=== PATIENT | female | born 1995 | race Caucasian/White ===

== ENCOUNTER 2016-09-27 22:49 | Inpatient (IN) | payer OTHER ==
--- NOTE | ~2016-09-27 | DS ---
Unit #: [id number] #: [id number] Patient: KHUSHBU TEE [id number] [facility] [address] [place] [address] [id number] MR#: [id number] NAME: KHUSHBU TEE ROOM: 30 Age: 21 Sex: F Admission Date: 09/27/2016 : 1995 Discharge Date: 10/01/2016 Attending Physician: Samson Hazel M.D. Primary Care Physician: Chinmay Duarte M.D. DISCHARGE SUMMARY REASON FOR ADMISSION Suicidal ideation. DIAGNOSTIC STUDIES LABORATORY RESULTS: Urine drug screen positive for marijuana. HOSPITAL COURSE The patient was admitted to inpatient unit on 09/27/2016 and discharged on 10/01/2016. The patient was treated on the inpatient unit with group therapy, individual therapy, and medication management. The patient responded well with the above modalities of treatment and medication management. Subsequently, the patient was discharged with a plan to follow up in outpatient clinic. DISCHARGE MEDICATIONS Minipress 2 mg at bedtime for nightmare, Prozac 40 mg daily for mood symptom, Vistaril 50 mg t.i.d. for anxiety, and Geodon 40 mg b.i.d. for psychosis. The patient was advised to continue with other medications; Lipitor 10 mg daily for high cholesterol, Toprol-XL 25 mg daily for hypertension, Glucophage 1000 mg b.i.d. for diabetes, and Zestril 10 mg daily for hypertension. DISCHARGE DIAGNOSES Psychiatric: 1. Schizoaffective disorder, bipolar type. 2. Marijuana abuse, moderate. 3. Alcohol use disorder, moderate. Secondary diagnosis: Deferred. Medical diagnoses: History of hypertension, obesity, high cholesterol, type 2 diabetes, tachycardia. Stressors: Psychosocial stressors. DISCHARGE INSTRUCTIONS The patient is to follow up in outpatient clinic as per social research assistant. CONDITION ON DISCHARGE The patient was pleasant and cooperative. Denied any psychotic symptom or any suicidal ideation. PROGNOSIS Guarded. Unit #: [id number] #: [id number] Patient: KHUSHBU TEE DIET AND ACTIVITY As tolerated. Dictated by... Samson Hazel M.D. SZMarleny/antonieta TD: 10/01/2016 14:16 JOB #: [id number] DISCHARGE SUMMARY Page 1 of 1 X Samson Hazel MD DISCHARGE SUMMARY
--- NOTE | ~2016-09-27 | PN ---
Unit #: [id number] #: [id number] Patient: KHUSHBU BURRIS [id number] [facility] [address] [place] [address] [id number] I MR#: [id number] NAME: KHUSHBU BURRIS ROOM: 30 Age: 21 Sex: F Admission Date: 09/27/2016 : 1995 Attending Physician: Samson Hazel M.D. Admitting Physician: Samson Hazel M.D. Primary Care Physician: Chinmay ANAYA PROGRESS NOTES DATE 09/30/2016 DISCUSSION Khushbu Burris is a 21-year-old female seen on 09/30/2016. Patient interviewed. Chart reviewed. Obtained information from nursing staff. Patient was compliant, cooperative. Mood sad, dysphoric, flat affect, guarded. Patient was able to maintain safe behavior. Denied any thoughts of harming self or others but cooperative. Complete review of system unremarkable. MENTAL STATUS EXAMINATION General appearance, patient dressed casually. Attention span, concentration fair. Oriented in place and person. Mood and affect sad, dysphoric. Speech monotone. Thought process concrete. Patient denied any thoughts of harming self or others but guarded. Recent and remote memory poor. Insight and judgement poor. DIAGNOSIS Mood disorder NOS. ASSESSMENT/PLAN Advised to continue with current medication and therapeutic protocol. Will monitor response to medication and make further adjustment of medication. Dictated by... Rahel Morfin/gray TD: 10/01/2016 22:04 JOB #: [id number] Unit #: [id number] #: [id number] Patient: KHUSHBU BURRISXI PROGRESS NOTES Page 1 of 1 X Samson Hazel MD PROGRESS NOTE
--- NOTE | ~2016-09-27 | PN ---
Unit #: [id number] #: [id number] Patient: KHUSHBU BURRIS [id number] [facility] [address] [place] [address] [id number] I MR#: [id number] NAME: KHUSHBU BURRIS ROOM: 30 Age: 21 Sex: F Admission Date: 09/27/2016 : 1995 Attending Physician: Samson Hazel M.D. Admitting Physician: Samson Hazel M.D. Primary Care Physician: Chinmay ANAYA PROGRESS NOTES DATE OF SERVICE 09/29/2016 DISCUSSION Ms. Khushbu Burris is a 21-year-old female seen on 09/29/2016. The patient interviewed, chart reviewed. Obtained information from nursing staff. The patient reports feeling better. Compliant with medication. No side effects from medication. The patient was able to maintain safe behavior on the unit. Compliant, cooperative. Vital Signs: 98.2, 90, 16, 125/62. Complete Review of Systems: Unremarkable. MENTAL STATUS EXAMINATION General Appearance: The patient dressed casually. Attention span, concentration: Fair. Oriented in place and person. Mood and affect: Sad, dysphoric. Speech: Monotone. Thought process: [place]. The patient denied any thoughts of harming self or others but guarded. Recent and remote memory: Poor. Insight and judgment: Poor. DIAGNOSES Bipolar mood disorder not otherwise specified. ASSESSMENT/PLAN Advised to continue with current medication and behavior protocol. We will monitor response to medication and make further adjustment of medication. Dictated by... Rahel Morfin/elias TD: 09/30/2016 10:24 JOB #: [id number] Unit #: [id number] #: [id number] Patient: KHUSHBU BURRIS PROGRESS NOTES Page 1 of 1 X Samson Hazel MD PROGRESS NOTE
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
--- NOTE | ~2016-09-27 | HP ---
Unit #: [id number] #: [id number] Patient: KHUSHBU TEE [id number] [place] [address] [id number] I MR#: [id number] NAME: KHUSHBU TEE ROOM: P130 Age: 21 Sex: F Admission Date: 09/27/2016 : 1995 Attending Physician: Samson Hazel M.D. Admitting Physician: Samson Hazel M.D. Primary Care Physician: Chinmay Duarte HISTORY AND PHYSICAL HISTORY OF PRESENT ILLNESS Khushbu is a 21 year old admitted to [address] [place] [address] because of her abuse of alcohol. She also reports wanting to hurt herself. PAST MEDICAL HISTORY 1. History of alcohol abuse. 2. High blood pressure. 3. Hyperlipidemia. 4. Diabetes mellitus. PAST SURGICAL HISTORY Nothing reported. ALLERGIES No known drug allergies. SOCIAL HISTORY Smokes one pack per day. Drinks alcohol frequently. Has a history of illicit substance abuse to include marijuana and spice. FAMILY HISTORY Medically noncontributory. REVIEW OF SYSTEMS She does not answer questions appropriately. There are no reports of nausea, vomiting or diarrhea. She has had no cough or increased temperature. CURRENT MEDICATIONS 1. Lipitor 10 mg q.h.s. 2. Minipress 2 mg q.h.s. 3. Nicotine patch 14 mg q.a.m. 4. Claritin 10 mg daily 5. Toprol XL 25 mg daily 6. Geodon 40 mg b.i.d. 7. Vistaril 50 mg t.i.d. 8. Prozac 40 mg daily 9. Zestril 10 mg daily 10. Glucophage 1000 mg b.i.d. 11. Milk of Magnesia p.r.n. 12. Maalox p.r.n. 13. Tylenol p.r.n. Unit #: [id number] #: [id number] Patient: KHUSHBU TEE PHYSICAL EXAMINATION GENERAL: Alert, obese, in no apparent distress. VITAL SIGNS: Blood pressure 130/72, heart rate 80, respirations 16, temperature 98.6. WEIGHT: 185 pounds. HEIGHT: 5'5". SKIN: Warm and dry without rash or lesion. HEENT: Normocephalic. TMs not viewed. Oral and nasal passages clear. Conjunctivae clear. Pupils equal, round and reactive to light and accommodation. Extraocular movements intact. NECK: Supple without lymphadenopathy or thyromegaly. HEART: Regular rate and rhythm without murmur. LUNGS: Clear. ABDOMEN: Soft, nontender. : Not done. EXTREMITIES: No evidence of cyanosis, clubbing or edema. Moves all extremities without focal deficit. NEUROLOGICAL: Grossly within normal limits. Cranial Nerves: II: Visual armijo are intact. III, IV AND : Extraocular movements are intact. Pupils are equal, round and reactive to light. V: Facial sensation is grossly normal. VII: Facial movements and expression are normal. VIII: Auditory acuity grossly intact. IX, X: Uvula is midline. Phonation is normal. XI: Patient shrugs shoulders and turns head normally. XII: Tongue protrudes in the midline. Sensory and Motor Function: Sensory and motor sensation is grossly normal. Motor: moves all extremities well. Coordination: Gait is normal. Deep Tendon Reflexes: Intact. IMPRESSION Psychiatric admission RECOMMENDATIONS PSYCHIATRIC: Per psychiatrist. MEDICAL: I see no contraindications to participating in facility's activities. MEDICAL PROGNOSIS Good. MEDICAL CONDITION Stable. Dictated by... Stefani Wilder PCarolynACarolyn-Marleny. for Rahel Anguiano/blanche TD: 09/28/2016 22:56 JOB #: [id number] Unit #: [id number] #: [id number] Patient: KHUSHBU TEE HISTORY AND PHYSICAL Page 1 of 1 X Stefani Wilder X HISTORY AND PHYSICAL
[2016-09-28 12:28] LABS: BASOPHIL% 0.5 % (0-2.5); EOSINOPHIL# 0.1 X10e3 (0-0.7); EOSINOPHIL% 1.2 % (0.0-7.0); HEMATOCRIT 42.3 % (35.0-45.0); HEMOGLOBIN 14.1 gm/dL (12.0-16.0); LYMPHOCYTE# 2.5 X10e3 (1.0-3.5); LYMPHOCYTE% 30.5 % (17.0-45.0); MEAN CELL VOLUME 87.7 FL (83-96); MEAN CORPUSCULAR HEMOGLOBIN 29.2 PG (28-34); MEAN CORPUSCULAR HGB CONC 33.3 g/dL (30-36); MEAN PLATELET VOLUME 7.9 FL (6.5-11.5); MONOCYTE# 0.7 X10e3 (0-1.0); MONOCYTE% 8.4 % (3.0-12.0); NEUTROPHIL# 4.8 X10e3 (1.5-7.1); NEUTROPHIL% 59.4 % (40-75); PLATELET COUNT 268 X10e3 (140-420); RED BLOOD COUNT 4.83 X10e (3.90-5.30); WHITE BLOOD COUNT 8.2 X10e3 (4.0-10.5)
[2016-09-28 12:47] LABS: ALBUMIN SERUM 3.2 g/dL (3.5-5.0); ALKALINE PHOSPHATASE 66 U/L (32-92); ALT (SGPT) 29 U/L (10-40); AST (SGOT) 31 U/L (10-42); BILIRUBIN,TOTAL 1.8 mg/dL (0.2-2.0); BLOOD UREA NITROGEN 8 mg/dL (9-23); CALCIUM SERUM 8.8 mg/dL (8.4-10.2); CARBON DIOXIDE 27 mmol/L (22-31); CHLORIDE 98 mmol/L (100-111); GLUCOSE FASTING 385 mg/dL (70-110); POTASSIUM 3.4 mmol/L (3.5-5.1); PROTEIN TOTAL SERUM 6.5 g/dL (6.0-8.3); SODIUM 134 mmol/L (135-145)
[2016-09-28 12:49] LABS: DIFF IND NO
[2016-09-28 12:53] LABS: BUN/CREATININE RATIO 26.66; CREATININE SERUM <0.3 mg/dL (0.6-1.4); GLOM FILT RATE Estimated ABOVE60 mL/min (>60)
== END 2016-10-01 12:26 | disposition home or self-care (01) | DRG 885 ==
LOC: P1S 22:49
PROVIDERS: Psychiatry & Neurology Psychiatry
DX: F25.0 Schizoaffective disorder, bipolar type (principal); E11.9 Type 2 diabetes mellitus without complications; I10 Essential (primary) hypertension; F10.20 Alcohol dependence, uncomplicated; E66.9 Obesity, unspecified; R00.0 Tachycardia, unspecified; E78.00 Pure hypercholesterolemia, unspecified; F17.200 Nicotine dependence, unspecified, uncomplicated; F39 Unspecified mood [affective] disorder; F29 Unspecified psychosis not due to a substance or known physiological condition; F41.9 Anxiety disorder, unspecified
CPT/HCPCS: 80053; 82947; 85025

== ENCOUNTER 2017-01-26 15:00 | Inpatient (IN) | payer OTHER ==
[~2017-01-26] VITALS: Ht 165.1 cm; Wt 88.9 kg
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
--- NOTE | ~2017-01-26 | HP ---
Unit #: [id number] #: [id number] Patient: KHUSHBU TEE [id number] [place] [address] [id number] I MR#: [id number] NAME: KHUSHBU TEE ROOM: P263 Age: 21 Sex: F Admission Date: 01/26/2017 : 1995 Attending Physician: Samson Hazel M.D. Admitting Physician: Samson Hazel M.D. Primary Care Physician: Chinmay Duarte HISTORY AND PHYSICAL HISTORY OF PRESENT ILLNESS Khushbu is a 21-year-old female admitted on 01/26/[address] [place] [address] for suicidal ideation and depression. PAST MEDICAL HISTORY 1. Obesity. 2. Type 2 diabetes. 3. Hypertension. 4. Hyperlipidemia. 5. History of tachycardia. PAST SURGICAL HISTORY 1. Cholecystectomy. 2. Tonsillectomy. ALLERGIES No known drug allergies. SOCIAL HISTORY Smokes 1/2 pack cigarettes daily and occasional marijuana. She denies any alcohol use. She is currently single and living with her girlfriend's aunt. FAMILY HISTORY Noncontributory. REVIEW OF SYSTEMS CONSTITUTIONAL: No fever or chills. HEENT: Denies any sore throat, ear pain or runny nose. CARDIOVASCULAR: Denies chest pain, irregular heart rhythm or palpitations. CHEST: Denies shortness of breath or cough. No hemoptysis. GASTROINTESTINAL: Denies nausea, vomiting, diarrhea or chronic constipation. ENDOCRINE: Denies history of increased thirst or urination. No recent significant weight loss or gain. GENITOURINARY: Denies dysuria, frequency, or hematuria. SKIN: Denies any rashes. HEMATOLOGIC: Denies history of increased bleeding or bruising. MUSCULOSKELETAL: Denies any hot, swollen joints. No generalized muscle pain. NEUROLOGIC: Denies problems with vision or speech. No frequent, severe headaches. No numbness, tingling or weakness in any extremities. Denies loss of bladder or bowel control. Unit #: [id number] #: [id number] Patient: KHUSHBU TEE CURRENT MEDICATIONS 1. Metformin. 2. Lisinopril. 3. Prozac. 4. Metoprolol. 5. Pravastatin. 6. Hydroxyzine. 7. Geodon. PHYSICAL EXAMINATION GENERAL: Alert, oriented, in no acute distress. VITAL SIGNS: Blood pressure 136/93, heart rate 109, respirations 16, temperature 97.6. HEIGHT: 5 feet 5. WEIGHT: 196 pounds. SKIN: Warm and dry without rash or lesion. HEENT: Normocephalic. TMs not viewed. Oral and nasal passages clear. Conjunctivae clear. PERRLA. EOMs intact. NECK: Supple without lymphadenopathy or thyromegaly. HEART: Regular rate and rhythm without murmur. LUNGS: Clear. ABDOMEN: Soft, nontender, without masses or hepatosplenomegaly. : Not done. EXTREMITIES: No evidence of cyanosis, clubbing or edema. Moves all without focal deficit. NEUROLOGICAL: Grossly within normal limits. Cranial Nerves: II: Visual armijo are intact. III, IV AND : Extraocular movements are intact. Pupils are equal, round and reactive to light. V: Facial sensation is grossly normal. VII: Facial movements and expression are normal. VIII: Auditory acuity grossly intact. IX, X: Uvula is midline. Phonation is normal. XI: Patient shrugs shoulders and turns head normally. XII: Tongue protrudes in the midline. Sensory and Motor Function: Sensory and motor sensation is grossly normal. Motor: moves all extremities well. Coordination: Gait is normal. Deep Tendon Reflexes: Intact. IMPRESSION 1. Psychiatric admission. 2. Obesity. 3. Tachycardia. 4. Type 2 diabetes. 5. Hypertension. 6. Hyperlipidemia. RECOMMENDATIONS PSYCHIATRIC: Per psychiatrist. MEDICAL: No contraindication to participate in facility's activities. MEDICAL PROGNOSIS Good. MEDICAL CONDITION Stable. Unit #: [id number] #: [id number] Patient: KHUSHBU TEE Dictated by... Doug Douglas/gray TD: 01/27/2017 20:46 JOB #: [id number] HISTORY AND PHYSICAL Page 1 of 1 X ALEKSANDER FOWLER APRN X HISTORY AND PHYSICAL
--- NOTE | ~2017-01-26 | PN ---
Unit #: [id number] #: [id number] Patient: KHUSHBU BURRIS [id number] [facility] [address] [place] [address] [id number] I MR#: [id number] NAME: KHUSHBU BURRIS ROOM: [facility] Age: 21 Sex: F Admission Date: 01/26/2017 : 1995 Attending Physician: Samson Hazel M.D. Admitting Physician: Samson Hazel M.D. Primary Care Physician: Chinmay ANAYA PROGRESS NOTES DATE 01/27/2017 DISCUSSION Ms. Khushbu Burris is a 21-year-old female seen on 01/27/2017. Patient interviewed. Chart reviewed. Obtained information from nursing staff. Patient reported having nightmare, trouble sleeping, sad, depressed, paranoia, mood lability, hallucinations. Complete review of system unremarkable. MENTAL STATUS EXAMINATION General appearance, patient dressed casually. Attention span, concentration fair. Oriented in time, place and person. Mood and affect sad, dysphoric. Speech monotone. Thought process concrete. Patient denied any thoughts of harming self or others or any psychotic symptoms. Recent and remote memory poor. Insight and judgement poor. DIAGNOSES Schizoaffective disorder, bipolar type. ASSESSMENT/PLAN Advised to resume patient's Minipress 2 mg at bedtime, Prozac 40 mg at bedtime, Vistaril p.r.n. Continue with the Lipitor, trazodone, Geodon 40 mg b.i.d., Lopressor, Glucophage, nicotine patch, Zestril. If needed, consider further adjustment of medication. We will continue to follow up. Dictated by... Rahel Morfin/gray TD: 01/28/2017 22:37 JOB #: [id number] Unit #: [id number] #: [id number] Patient: KHUSHBU BURRIS PROGRESS NOTES Page 1 of 1 X Samson Hazel MD PROGRESS NOTE
--- NOTE | ~2017-01-26 | PN ---
Unit #: [id number] #: [id number] Patient: KHUSHBU BURRIS [id number] [facility] [address] [place] [address] [id number] I MR#: [id number] NAME: KHUSHBU BURRIS ROOM: [facility] Age: 21 Sex: F Admission Date: 01/26/2017 : 1995 Attending Physician: Samson Hazel M.D. Admitting Physician: Samson Hazel M.D. Primary Care Physician: Chinmay ANAYA PROGRESS NOTES DATE 01/28/2017 DISCUSSION Ms. Khushbu Burris is a 21-year-old female, seen on 01/28/2017. The patient interviewed, chart reviewed, and obtained information from the nursing staff. The patient was compliant and cooperative. Mood sad and dysphoric, but making progress, sleeping good, attentive and cooperative. The patient requested for p.r.n. Vistaril one time. REVIEW OF SYSTEMS Complete review of systems unremarkable. MENTAL STATUS EXAMINATION General appearance: Patient dressed casually in hospital attire. Attention span and concentration, fair. Oriented in time, place, and person. Mood and affect, sad and dysphoric. Speech, monotone. Thought process, concrete. The patient denied any thoughts of harming self or others but sad, depressed, withdrawn, isolative. Recent and remote memory, poor. Insight and judgment, poor. DIAGNOSIS Mood disorder, NOS. ASSESSMENT/PLAN Advised to continue with the current medication and therapeutic protocol, and if needed consider further adjustment of medication. Dictated by... Rahel Morfin/rica TD: 01/30/2017 08:38 JOB #: [id number] Unit #: [id number] #: [id number] Patient: KHUSHBU BURRIS PROGRESS NOTES Page 1 of 1 X Samson Hazel MD PROGRESS NOTE
--- NOTE | ~2017-01-26 | DS ---
Unit #: [id number] #: [id number] Patient: KHUSHBU TEE [id number] [place] [address] [id number] I MR#: [id number] NAME: KHUSHBU TEE ROOM: [facility] Age: 21 Sex: F Admission Date: 01/26/2017 : 1995 Discharge Date: 01/30/2017 Attending Physician: Samson Hazel M.D. Primary Care Physician: Chinmay Duarte DISCHARGE SUMMARY REASON FOR ADMISSION Depression and psychosis. DIAGNOSTIC STUDIES LABORATORY RESULTS: Remarkable for glucose 154 and creatinine 0.3. HOSPITAL COURSE The patient was admitted to inpatient unit on 01/26/2017 and discharged on 01/30/2017. The patient was treated on the inpatient unit with group therapy, individual therapy, medication management. The patient was responsive to treatment. Subsequently, the patient was discharged with a plan to follow up in outpatient program. The patient was treated with expressive therapy, medication management, psychotherapy, and chemical dependency group. DISCHARGE MEDICATIONS Vistaril 50 mg t.i.d. for anxiety, Geodon 40 mg b.i.d. for psychosis, Prozac 40 mg at bedtime for mood symptom, Desyrel 75 mg at bedtime for sleep, and Minipress 2 mg at bedtime for nightmares. DISCHARGE DIAGNOSES Psychiatric: Major depressive disorder, recurrent, severe, F33.2; schizophrenic spectrum disorder, F29.0; posttraumatic stress disorder, chronic, F43.12. Secondary diagnosis: Deferred. Medical diagnosis: History of tachycardia, hypertension, high cholesterol, type 2 diabetes, obesity. Stressors: Psychosocial stressors. DISCHARGE INSTRUCTIONS The patient to follow up in outpatient clinic as per social group worker. CONDITION ON DISCHARGE The patient was pleasant and cooperative. Denied any psychotic symptom or any suicidal ideation. PROGNOSIS Guarded. DIET AND ACTIVITY Unit #: [id number] #: [id number] Patient: KHUSHBU TEE As tolerated. Dictated by... Rahel Morfin/antonieta TD: 01/30/2017 16:03 JOB #: [id number] DISCHARGE SUMMARY Page 1 of 1 X Samson Hazel MD DISCHARGE SUMMARY
--- NOTE | ~2017-01-26 | A ---
[facility] Nutrition Therapy DATE: 01/27/17 Patient: KHUSHBU TEE Physician: OBI Address: [address] [place] [address] Room/Bed: [address], Zip: [place] [address] Admit Date: 01/26/17 Date of : [birth year] Height: 5 5 Weight: [phone] NUTRITIONAL ASSESSMENT: REASON: Request for large entree PMH: Reviewed Anthropometrics: Ht: 65", Wt: 196 lbs, BMI: 32 (stage I obese) Labs: Reviewed Recommendations: Pt not appropriate for large portion entree based on her BMI per guidelines and hx of diabetes with elevated blood glucose. Respectfully, Mariela Hoffman RD, LD Food and Nutritional Services [facility] cc: client file
--- NOTE | ~2017-01-26 | PN ---
Unit #: [id number] #: [id number] Patient: KHUSHBU BURRIS [id number] [facility] [address] [place] [address] [id number] I MR#: [id number] NAME: KHUSHBU BURRIS ROOM: [facility] Age: 21 Sex: F Admission Date: 01/26/2017 : 1995 Attending Physician: Samson Hazel M.D. Admitting Physician: Samson Hazel M.D. Primary Care Physician: Chinmay ANAYA PROGRESS NOTES DATE OF SERVICE 01/29/2017 DISCUSSION Ms. Khushbu Burris is a 21-year-old female seen on 01/29/2017. The patient interviewed, chart reviewed. Obtained information from nursing staff. The patient compliant, cooperative. Mood sad, dysphoric, withdrawn, but no aggressive behavior or self-harming behavior. Making progress. Complete Review of Systems: Unremarkable. MENTAL STATUS EXAMINATION General Appearance: The patient dressed casually. Attention span, concentration: Fair. Oriented in time, place, and person. Mood and affect labile. Speech: Monotone. Thought process: Circumstantial. The patient denied any thoughts of harming self or others. Recent and remote memory: Poor. Insight and judgment: Poor. DIAGNOSIS Bipolar mood disorder not otherwise specified. ASSESSMENT/PLAN Advised to continue with current medication and therapeutic protocol. If needed, consider further adjustment of medication. Dictated by... Rahel Morfin/elias TD: 01/31/2017 06:47 JOB #: [id number] Unit #: [id number] #: [id number] Patient: KHUSHBU BURRISXI PROGRESS NOTES Page 1 of 1 X Samson Hazel MD PROGRESS NOTE
[2017-01-27 09:43] LABS: BASOPHIL# 0.1 X10e3 (0-0.3); BASOPHIL% 0.7 % (0-2.5); EOSINOPHIL# 0.2 X10e3 (0-0.7); EOSINOPHIL% 1.8 % (0.0-7.0); HEMATOCRIT 40.8 % (35.0-45.0); HEMOGLOBIN 13.8 gm/dL (12.0-16.0); LYMPHOCYTE# 3.5 X10e3 (1.0-3.5); LYMPHOCYTE% 39.1 % (17.0-45.0); MEAN CORPUSCULAR HGB CONC 33.7 g/dL (30-36); MEAN PLATELET VOLUME 8.4 FL (6.5-11.5); MONOCYTE# 0.6 X10e3 (0-1.0); NEUTROPHIL# 4.6 X10e3 (1.5-7.1); NEUTROPHIL% 51.4 % (40-75); PLATELET COUNT 235 X10e3 (140-420); RED BLOOD COUNT 4.75 X10e (3.90-5.30); RED CELL DISTRIBUTION WIDTH 13.6 % (11.0-15.5)
[2017-01-27 09:56] LABS: DIFF IND NO
[2017-01-27 10:34] LABS: ALBUMIN SERUM 3.5 g/dL (3.5-5.0); CALCIUM SERUM 8.7 mg/dL (8.4-10.2); CREATININE SERUM 0.5 mg/dL (0.6-1.4); GLOM FILT RATE Estimated 136.4 mL/min (>60); POTASSIUM 3.4 mmol/L (3.5-5.1); PROTEIN TOTAL SERUM 6.4 g/dL (6.0-8.3)
[2017-01-30 09:42] LABS: BASOPHIL% 0.6 % (0-2.5); EOSINOPHIL# 0.1 X10e3 (0-0.7); EOSINOPHIL% 1.5 % (0.0-7.0); HEMATOCRIT 39.4 % (35.0-45.0); HEMOGLOBIN 13.2 gm/dL (12.0-16.0); LYMPHOCYTE# 3.9 X10e3 (1.0-3.5); LYMPHOCYTE% 46.5 % (17.0-45.0); MEAN CELL VOLUME 86.3 FL (83-96); MEAN CORPUSCULAR HEMOGLOBIN 28.9 PG (28-34); MEAN CORPUSCULAR HGB CONC 33.5 g/dL (30-36); MEAN PLATELET VOLUME 8.4 FL (6.5-11.5); MONOCYTE# 0.6 X10e3 (0-1.0); MONOCYTE% 7.1 % (3.0-12.0); NEUTROPHIL# 3.7 X10e3 (1.5-7.1); NEUTROPHIL% 44.3 % (40-75); PLATELET COUNT 223 X10e3 (140-420); RED BLOOD COUNT 4.56 X10e (3.90-5.30); RED CELL DISTRIBUTION WIDTH 13.6 % (11.0-15.5); WHITE BLOOD COUNT 8.4 X10e3 (4.0-10.5)
[2017-01-30 09:45] LABS: DIFF IND NO
[2017-01-30 10:36] LABS: ALBUMIN SERUM 3.6 g/dL (3.5-5.0); BILIRUBIN,TOTAL 1.5 mg/dL (0.2-2.0); CALCIUM SERUM 8.6 mg/dL (8.4-10.2); CREATININE SERUM 0.3 mg/dL (0.6-1.4); GLOM FILT RATE Estimated 161.5 mL/min (>60); POTASSIUM 3.9 mmol/L (3.5-5.1); PROTEIN TOTAL SERUM 6.3 g/dL (6.0-8.3)
== END 2017-01-30 12:45 | disposition home or self-care (01) | DRG 885 ==
LOC: P2L 17:39
PROVIDERS: Psychiatry & Neurology Psychiatry
DX: F33.2 Major depressive disorder, recurrent severe without psychotic features (principal); R45.851 Suicidal ideations; E11.9 Type 2 diabetes mellitus without complications; F43.12 Post-traumatic stress disorder, chronic; I10 Essential (primary) hypertension; E66.9 Obesity, unspecified; Z79.84 Long term (current) use of oral hypoglycemic drugs; Z90.49 Acquired absence of other specified parts of digestive tract; E78.5 Hyperlipidemia, unspecified; F17.210 Nicotine dependence, cigarettes, uncomplicated; F25.0 Schizoaffective disorder, bipolar type; F39 Unspecified mood [affective] disorder; Z68.32 Body mass index [BMI] 32.0-32.9, adult
CPT/HCPCS: 80053; 82947; 84703; 85025; 86592

== ENCOUNTER 2017-03-14 10:00 | Inpatient (IN) | payer OTHER ==
[~2017-03-14] VITALS: Ht 165.1 cm; Wt 88.9 kg
--- NOTE | ~2017-03-14 | PN ---
Unit #: [id number] #: [id number] Patient: KHUSHBU BURRIS [id number] [facility] [address] [place] [address] [id number] I MR#: [id number] NAME: KHUSHBU BURRIS ROOM: [facility] Age: 22 Sex: F Admission Date: 03/14/2017 : 1995 Attending Physician: Samson Hazel M.D. Admitting Physician: Samson Hazel M.D. Primary Care Physician: Chinmay ANAYA PROGRESS NOTES DATE OF SERVICE 03/16/2017 DISCUSSION Ms. Khushbu Burris is a 22-year-old female seen on 03/16/2017. Patient interviewed, chart reviewed. Obtained information from nursing staff. Patient was compliant and cooperative. Mood sad, dysphoric. Patient reports making progress. Complete review of systems unremarkable. MENTAL STATUS EXAMINATION General appearance, patient dressed casually. Attention span and concentration fair. Oriented to time, place and person. Mood and affect labile. Speech monotone. Thought process concrete. Patient denied any thoughts of harming self or others. Recent and remote memory poor. Insight and judgement poor. DIAGNOSES 1. Bipolar mood disorder NOS. 2. Schizoaffective disorder bipolar type. ASSESSMENT/PLAN Advise to continue with current medication and therapeutic protocol. If needed consider further adjustment of medication. Dictated by... Rahel Morfin/blanche TD: 03/17/2017 03:07 JOB #: [id number] Unit #: [id number] #: [id number] Patient: KHUSHBU BURRIS PROGRESS NOTES Page 1 of 1 X Samson Hazel MD PROGRESS NOTE
--- NOTE | ~2017-03-14 | DS ---
Unit #: [id number] #: [id number] Patient: KHUSHBU TEE [id number] [facility] [address] [place] [address] [id number] I MR#: [id number] NAME: KHUSHBU TEE ROOM: [facility] Age: 22 Sex: F Admission Date: 03/14/2017 : 1995 Discharge Date: 03/17/2017 Attending Physician: Samson Hazel M.D. Primary Care Physician: Chinmay Duarte DISCHARGE SUMMARY HOSPITAL COURSE The patient was admitted to the inpatient unit on 03/14/2017 and discharged on 03/17/2017. The patient was treated with group therapy, individual therapy, and medication management. The patient was responsive to treatment and showed improvement. Subsequently, the patient was discharged with a plan to follow up in outpatient program. DIAGNOSTIC STUDIES LABORATORY RESULTS: Unremarkable except urine drug screen positive for marijuana. DISCHARGE MEDICATIONS Vistaril 50 mg t.i.d. for anxiety, Geodon 40 mg b.i.d. for psychosis, Prozac 40 mg daily for depression, Desyrel 75 mg at bedtime for sleep, Minipress 2 mg at bedtime for nightmare, Glucophage 1000 mg b.i.d. for diabetes, Zestril 5 mg once daily for hypertension, Lopressor 25 mg b.i.d. for hypertension, and Lipitor 10 mg at bedtime for high cholesterol. DISCHARGE DIAGNOSES Psychiatric: Major depressive disorder, recurrent, severe, F33.2; rule out schizophrenia, chronic paranoid type, F20.0; and posttraumatic stress disorder, chronic, F43.12. Secondary diagnosis: Deferred. Medical diagnoses: History of tachycardia, hypertension, high cholesterol, type 2 diabetes, and obesity. Stressors: Psychosocial stressors. DISCHARGE INSTRUCTIONS The patient to follow up in outpatient clinic as per social welfare administrator. CONDITION ON DISCHARGE The patient was pleasant and cooperative. Denied any psychotic symptom or any suicidal ideation. PROGNOSIS Guarded. DIET AND ACTIVITY As tolerated. Unit #: [id number] #: [id number] Patient: KHUSHBU TEE Dictated by... Rahel Morfin/antonieta TD: 03/20/2017 13:14 JOB #: [id number] DISCHARGE SUMMARY Page 1 of 1 X Samson Hazel MD DISCHARGE SUMMARY
--- NOTE | ~2017-03-14 | HP ---
Unit #: [id number] #: [id number] Patient: KHUSHBU TEE [id number] [facility] [address] [place] [address] [id number] I MR#: [id number] NAME: KHUSHBU TEE ROOM: [facility] Age: 22 Sex: F Admission Date: 03/14/2017 : 1995 Attending Physician: Samson Hazel M.D. Admitting Physician: Samson Hazel M.D. Primary Care Physician: Chinmay Duarte HISTORY AND PHYSICAL HISTORY OF PRESENT ILLNESS Khushbu is a 22 year old admitted to [address] [place] [address] with depression and verbalizing wanting to hurt herself. She has had other admissions to this facility. PAST MEDICAL HISTORY 1. Morbid obesity. 2. Diabetes mellitus, type 2. 3. High blood pressure. 4. Hyperlipidemia. 5. History of tachycardia. PAST SURGICAL HISTORY 1. Cholecystectomy. 2. T and A. ALLERGIES No known drug allergies. SOCIAL HISTORY Smokes 1/2 pack per day. Denies alcohol. Admits to using marijuana on occasion. FAMILY HISTORY Medically noncontributory. REVIEW OF SYSTEMS CONSTITUTIONAL: No fever or chills. HEENT: Denies any sore throat, ear pain or runny nose. CARDIOVASCULAR: Denies chest pain, irregular heart rhythm or palpitations. CHEST: Denies shortness of breath or cough. No hemoptysis. GASTROINTESTINAL: Denies nausea, vomiting, diarrhea or chronic constipation. ENDOCRINE: Denies history of increased thirst or urination. No recent significant weight loss or gain. GENITOURINARY: Denies dysuria, frequency, or hematuria. SKIN: Denies any rashes. HEMATOLOGIC: Denies history of increased bleeding or bruising. MUSCULOSKELETAL: Denies any hot, swollen joints. No generalized muscle pain. NEUROLOGIC: Denies problems with vision or speech. No frequent, severe headaches. No numbness, tingling or weakness in any extremities. Denies loss of bladder or bowel control. Unit #: [id number] #: [id number] Patient: KHUSHBU TEE CURRENT MEDICATIONS 1. Lipitor 10 mg daily. 2. Minipress 2 mg q.h.s. 3. Trazodone 75 mg q.h.s. 4. Prozac 40 mg q.h.s. 5. Lopressor 25 mg b.i.d. 6. Geodon 40 mg b.i.d. 7. Vistaril 50 mg t.i.d. 8. Glucophage 1000 mg b.i.d. 9. Milk of Magnesia p.r.n. 10. Maalox p.r.n. 11. Tylenol p.r.n. 12. Zestril 5 mg daily. PHYSICAL EXAMINATION GENERAL: Alert, morbidly obese, in no apparent distress. VITAL SIGNS: Blood pressure 124/82, heart rate 100, respirations 16, temperature 98.6. WEIGHT: 196. HEIGHT: 5 feet 5 inches. SKIN: Warm and dry without rash or lesion. HEENT: Normocephalic. TMs not viewed. Oral and nasal passages clear. Conjunctivae clear. PERRLA. EOMs intact. NECK: Supple without lymphadenopathy or thyromegaly. HEART: Regular rate and rhythm without murmur. LUNGS: Clear. ABDOMEN: Soft, nontender. : Not done. EXTREMITIES: No evidence of cyanosis, clubbing or edema. Moves all without focal deficit. NEUROLOGICAL: Grossly within normal limits. Cranial Nerves: II: Visual armijo are intact. III, IV AND : Extraocular movements are intact. Pupils are equal, round and reactive to light. V: Facial sensation is grossly normal. VII: Facial movements and expression are normal. VIII: Auditory acuity grossly intact. IX, X: Uvula is midline. Phonation is normal. XI: Patient shrugs shoulders and turns head normally. XII: Tongue protrudes in the midline. Sensory and Motor Function: Sensory and motor sensation is grossly normal. Motor: moves all extremities well. Coordination: Gait is normal. Deep Tendon Reflexes: Intact. IMPRESSION Psychiatric admission. RECOMMENDATIONS PSYCHIATRIC: Per psychiatrist. MEDICAL: See no contraindication to participate in facility's activities. MEDICAL PROGNOSIS Good. MEDICAL CONDITION Stable. Unit #: [id number] #: [id number] Patient: KHUSHBU TEE Dictated by... Stefani Wilder P.A.-C. for Rahel Anguiano/gray TD: 03/14/2017 18:41 JOB #: [id number] HISTORY AND PHYSICAL Page 1 of 1 X Stefani Widler HISTORY AND PHYSICAL
--- NOTE | ~2017-03-14 | PN ---
Unit #: [id number] #: [id number] Patient: KHUSHBU TEE [id number] [facility] [address] [place] [address] [id number] I MR#: [id number] NAME: KHUSHBU TEE ROOM: [facility] Age: 22 Sex: F Admission Date: 03/14/2017 : 1995 Attending Physician: Samson Hazel M.D. Admitting Physician: Samson Hazel M.D. Primary Care Physician: Chinmay ANAYA PROGRESS NOTES DATE 03/15/2017 DISCUSSION Ms. Lafleur is a 22-year-old female seen on 03/15/2017. Patient interviewed, chart reviewed. Obtained information from nursing staff. Patient was compliant and cooperative. Mood sad, dysphoric, flat affect. Patient tolerating medication fairly well but still sad, depressed, withdrawn, isolative. Complete review of systems unremarkable. MENTAL STATUS EXAMINATION General appearance, patient dressed casually. Attention span and concentration fair. Oriented to time, place and person. Mood and affect sad, depressed. Speech monotone. Thought process concrete. Patient denied any homicidal ideation but does report suicidal ideation, hallucination command in nature. Recent and remote memory poor. Insight and judgement poor. DIAGNOSES 1. Major depressive disorder recurrent severe. 2. Psychosis NOS. ASSESSMENT/PLAN Advise to continue with current medication and therapeutic protocol. If needed consider further adjustment of medication. Dictated by... Rahel Morfin/blanche TD: 03/15/2017 22:45 JOB #: [id number] Unit #: [id number] #: [id number] Patient: KHUSHBU TEE PROGRESS NOTES Page 1 of 1 X Samson Hazel MD PROGRESS NOTE
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
[2017-03-15 13:45] LABS: URINE APPEARANCE CLOUDY; URINE BILIRUBIN NEG (NEG); URINE BLOOD 3+ (NEG); URINE COLOR YELLOW; URINE GLUCOSE >1000 MG/DL (NEG); URINE KETONE NEG (NEG); URINE LEUKOCYTE ESTERASE NEG (NEG); URINE NITRATE NEG (NEG); URINE PH 5.5 (5-8); URINE PROTEIN 2+ (NEG); URINE SPECIFIC GRAVITY 1.021 (1.003-1.035); URINE UROBILINOGEN 0.2 MG/DL (NEG)
[2017-03-15 13:50] LABS: U HYALINE CASTS AUWI 0-2 /[LPF]; URINE BACTERIA AUWI 1+ (NEGATIVE); URINE SQUAMOUS EPITHELIAL CELL FEW /[HPF]
[2017-03-15 14:14] LABS: UWBCS1 AUWI 0-2 (0-5)
[2017-03-15 14:18] LABS: AMPHETAMINE NEG (NEG); BARBITURATES NEG (NEG); BENZODIAZEPINES NEG (NEG); COCAINE NEG (NEG); MARIJUANA POS (NEG); OPIATES NEG (NEG); TRICYCLIC ANTIDEPRESSANTS NEG (NEG); U METHADONE NEG (NEG)
[2017-03-16 18:00] LABS: BASOPHIL# 0.1 X10e3 (0-0.3); BASOPHIL% 0.7 % (0-2.5); EOSINOPHIL# 0.2 X10e3 (0-0.7); HEMATOCRIT 43.3 % (35.0-45.0); HEMOGLOBIN 14.6 gm/dL (12.0-16.0); LYMPHOCYTE# 2.8 X10e3 (1.0-3.5); LYMPHOCYTE% 30.5 % (17.0-45.0); MEAN CELL VOLUME 88.3 FL (83-96); MEAN CORPUSCULAR HEMOGLOBIN 29.8 PG (28-34); MEAN CORPUSCULAR HGB CONC 33.7 g/dL (30-36); MEAN PLATELET VOLUME 8.5 FL (6.5-11.5); MONOCYTE# 0.6 X10e3 (0-1.0); MONOCYTE% 6.3 % (3.0-12.0); NEUTROPHIL# 5.5 X10e3 (1.5-7.1); NEUTROPHIL% 60.5 % (40-75); PLATELET COUNT 267 X10e3 (140-420); RED BLOOD COUNT 4.91 X10e (3.90-5.30); RED CELL DISTRIBUTION WIDTH 13.4 % (11.0-15.5); WHITE BLOOD COUNT 9.1 X10e3 (4.0-10.5)
[2017-03-16 18:05] LABS: DIFF IND NO
[2017-03-16 18:24] LABS: ALBUMIN SERUM 3.8 g/dL (3.5-5.0); BILIRUBIN,TOTAL 1.3 mg/dL (0.2-2.0); CALCIUM SERUM 9.8 mg/dL (8.4-10.2); CREATININE SERUM 0.4 mg/dL (0.6-1.4); GLOM FILT RATE Estimated 145.8 mL/min (>60); POTASSIUM 4.1 mmol/L (3.5-5.1)
== END 2017-03-17 10:55 | disposition home or self-care (01) | DRG 885 ==
LOC: P2L 11:49
PROVIDERS: Psychiatry & Neurology Psychiatry
DX: F33.2 Major depressive disorder, recurrent severe without psychotic features (principal); E11.9 Type 2 diabetes mellitus without complications; I10 Essential (primary) hypertension; F43.12 Post-traumatic stress disorder, chronic; E78.00 Pure hypercholesterolemia, unspecified; R00.0 Tachycardia, unspecified; F25.0 Schizoaffective disorder, bipolar type; F41.9 Anxiety disorder, unspecified
CPT/HCPCS: 80053; 80307; 81003; 82947; 84703; 85025